=== PATIENT | female | born 2000 | race Caucasian/White ===

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

== ENCOUNTER 2021-12-12 15:45 | Emergency (ER) | payer OTHER ==
[~2021-12-12] VITALS: Ht 144.8 cm; Wt 48.0 kg
[~2021-12-12 15:45] MED LIST: FERR325T23 PO; IBUP-2030 PO; MULT-1146 MT; NITR-87 PO
[2021-12-12 15:58] VITALS: BP 117/77
[2021-12-12] MEDS ORDERED: VISCOUS LIDOCAINE 2% 15 ML UDC MM STA (18:52)
[2021-12-12] MEDS ORDERED: PENI500T MT (18:55)
[2021-12-12] MEDS ORDERED: XLV MT (18:55)
[2021-12-12] MEDS ORDERED: TOPUD MT (18:55)
[2021-12-12] MEDS ORDERED: DEXAMETHASONE 4MG TABLET PO ONE (19:00)
[2021-12-12] MEDS ORDERED: ACETAMINOPHEN 325MG TABLET PO ONE (19:00)
[2021-12-12 19:24] LABS: MONOTEST NEGATIVE (NEGATIVE)
[2021-12-12] MEDS ORDERED: DEXAMETHASONE 4MG TABLET PO NR (20:00)
== END 2021-12-12 19:23 | disposition home or self-care (01) ==
LOC: ER 15:45
DX: J02.9 Acute pharyngitis, unspecified (principal)
CPT/HCPCS: 86308; 87070; 87430; 99283; J8540

== ENCOUNTER 2022-04-30 11:03 | Emergency (ER) | payer OTHER ==
[~2022-04-30] VITALS: Ht 144.8 cm; Wt 55.0 kg
[~2022-04-30 11:03] MED LIST changes: +PENI500T MT; +TOPUD MT; +XLV MT
[2022-04-30 11:16] VITALS: BP 121/74
[2022-04-30 12:50] LABS: BASOPHILS % 0.2 % (0.0-2.0); EOSINOPHILS % 0.2 % (0.0-5.0); HEMATOCRIT. 38.9 % (36.0-48.0); HEMOGLOBIN. 13.3 g/dL (12.0-16.0); LYMPHOCYTES % 23.6 % (20.0-50.0); MEAN CORPUSCULAR HEMOGLOBIN 28.5 pg (28.0-32.0); MEAN CORPUSCULAR VOLUME 83.4 fL (81.0-99.0); MEAN PLATELET VOLUME 8.1 fl (7.4-10.4); MONOCYTES % 4.5 % (2.0-8.0); NEUTROPHILS % 71.5 % (40.0-76.0); PLATELET 286 x1000/uL (130-400); RED BLOOD CELL COUNT 4.66 mill/uL (4.2-5.4); RED CELL DISTRIBUTION WIDTH 13.1 % (11.6-14.6)
[2022-04-30 12:52] LABS: CHLORIDE 105 mEq/L (98-107)
[2022-04-30 14:09] LABS: B-HCG QUANTITATIVE > 200000 mIU/mL (<3)
== END 2022-04-30 19:22 | disposition home or self-care (01) ==
LOC: ER 11:03
DX: O26.891 Other specified pregnancy related conditions, first trimester (principal); O20.9 Hemorrhage in early pregnancy, unspecified; Z3A.11 11 weeks gestation of pregnancy
CPT/HCPCS: 36415; 76801; 80053; 84702; 85025; 86850; 86900; 99284